=== PATIENT | male | born 1990 | race Caucasian/White ===

== ENCOUNTER 2023-10-24 02:05 | Emergency (ER) | payer BC, SELFPAY ==
[2023-10-24 02:07] VITALS: BP 126/96
[2023-10-24 02:45] VITALS: BMI 23.8
--- NOTE | 2023-10-24 04:04 | ED.GENMED ---
History of Present Illness
General
Chief Complaint: Throat Problem
Source: patient and family
Exam Limitations: none
Time Seen by Provider: 10/24/23 03:17
Nursing documentation reviewed up to this point in time: agreed with
History of Present Illness
History of Present Illness:
Pleasant 33-year-old male presents with throat discomfort. He states that he was eating this evening while he felt something stuck in his throat. He thought his esophagus was swelling shot. He states he has had this sensation multiple times in
the past but tonight it lasted longer. He does report that he vomited and the sensation resolved. Denies fever, chills, chest pain or shortness of breath. He states that he is due to see a editor producer. Denies any difficulty breathing..
Review of Systems
Review of Systems
Allergies reviewed?: Yes
All Other Systems: ROS reviewed and negative except as documented in HPI and ROS
Constitutional: Reports no symptoms
EENT: Reports no symptoms
Respiratory: Reports no symptoms
Cardiac: Reports no symptoms
ABD/GI: Reports no symptoms
: Reports no symptoms
Musculoskeletal: Reports no symptoms
Skin: Reports no symptoms
Neurological: Reports no symptoms
Endocrine: Reports no symptoms
Hematologic/Lymphatic: Reports no symptoms
Psychiatric: Reports no symptoms
Phy Exam
General Physical Exam
General Presentation: well appearing and no apparent distress
General Skin: warm and dry
General Habitus: normal
General Mental: alert
General Hydration: appears well hydrated
ENT Exam
ENT Exam: EOMI, pharynx normal, neck supple and normocephalic
Eye Exam
Eye Exam: PERRL, cornea clear and conjunctiva normal
Cardiovascular Exam
Cardiovascular Exam: regular rate/rhythm, no edema, no murmur and normal peripheral pulses
Pulmonary Exam
Pulmonary Exam: lungs clear, no respiratory distress, no rales, no crackles, no rhonchi, no stridor, no wheezing and no cough
Gastrointestinal Exam
Gastrointestinal Exam: normal bowel sounds, non tender, soft, no organomegaly, no pulsatile mass and non distended
Neurological Exam
Neurological Exam: alert, oriented x3, no motor deficits and speech normal
Musculoskeletal Exam
Musculoskeletal Exam: full ROM and no edema
Skin Exam
Skin Exam: normal color, warm/dry, no rash and no petechia
Psychiatric Exam
Psychiatric Exam: normal mood/affect
Course
Orders/Labs/Results
Orders:
Orders
10/24/23 03:41
CR Soft Tissue Neck Urgent
Comment:
Reason For Exam: odynophagia
Vital Signs
Initial and Last Documented VS:
Initial Vital Signs
Temp Pulse Resp BP Pulse Ox
97.8 F 78 22 126/96 98
10/24/23 02:07 10/24/23 02:07 10/24/23 02:07 10/24/23 02:07 10/24/23 02:07
Last Documented Vital Signs
Temp Pulse Resp BP Pulse Ox
97.8 F 78 22 126/96 98
10/24/23 02:07 10/24/23 02:07 10/24/23 02:07 10/24/23 02:07 10/24/23 02:07
*Radiology
Radiology exam reviewed: all reviewed NAD by ED Provider
*Pulse Oximetry
Patient hypoxic: no
*Critical Care Note
Total Time (30-74mins, 75-104mins- exclusive of procedures): Not Applicable
ED Attending Note
-
Portions of this chart may have been created with voice recognition software.� Occasional wrong word or��sound alike� substitutions may have occurred due to the inherent limitations of voice recognition software.
Discharge Plan
Departure
Patient Disposition: Home (Routine Discharge)
Date of Disposition: 10/24/23
Time of Disposition: 04:08
Patient with high blood pressure during this ER visit?: Yes
Condition: Good
Discharge Problem:
Dysphagia, Food impaction of esophagus
Instructions: BLOOD PRESSURE
Prescriptions:
No Action
ibuprofen 200 MG tablet
600 mg PO QIDPRN PRN (Reason: pain) Qty: 1 0RF
oxycodone-acetaminophen 5 MG/325 MG tablet
1 tab PO Q4HPRN PRN (Reason: pain not relieved by ibuprofen) Qty: 5 0RF
Referrals:
Naren Talley MD [Active] - Next open appointment
Activity Restrictions/Additional Instructions:
It was a pleasure meeting you and taking part in your care. We hope for your continued healing and wellness.
Please read discharge instructions in their entirety. However, they are for general education and may not describe your exact diagnosis at discharge. Information on your ER visit and medical conditions were discussed with you along with appropriate
follow up information...
If indicated, please take your medications as instructed and indicated on discharge paperwork.
Please schedule a follow up appointment as directed. Call to schedule an appointment
Please return to the emergency department with ANY change in, persisting, or worsening of symptoms. If any of your symptoms do not improve, or persist, or become more severe within 6-12 hours, please return to the emergency department for further
care.
Please return to the emergency department if you develop a headache, neck pain/stiffness, fever greater than 100.4F, chest pain, shortness of breath, persistent nausea, vomiting, slurred speech, difficulty walking, numbness/tingling, weakness, signs
of infection or any other symptoms that are worrisome to you.
If you have any questions or concerns please do not hesitate to call the Hospital at or E-mail me directly at [email or web address]
Interventions
Interventions:
*Risk Screen - Suicide Last Done: 10/24/23 02:07
*Neglect/Abuse Screening Last Done: 10/24/23 02:07
ED- Fall Risk Assessment Last Done: 10/24/23 02:46
ED-EENT Assessment Last Done: 10/24/23 02:46
ED- Pulmonary Assessment Last Done: 10/24/23 02:46
Discharge Date and Time
Print Language: [place]
== END 2023-10-24 04:34 | disposition home or self-care (01) ==
LOC: EMR 02:05
PROVIDERS: EMERGENCY PHYSICIAN Student in an Organized Health Care Education/Training Program
DX: R13.10 Dysphagia, unspecified (principal); T18.128A Food in esophagus causing other injury, initial encounter; W44.F3XA Food entering into or through a natural orifice, initial encounter
CPT/HCPCS: 99283; 70360

== ENCOUNTER → 2023-11-12 06:29 | Day surgery (SDC) | payer BC, SELFPAY | LOC: GI 06:29 | PROVIDERS: ATTENDING PHYSICIAN Internal Medicine Gastroenterology | DX: R13.14 Dysphagia, pharyngoesophageal phase (principal); R12 Heartburn; K44.9 Diaphragmatic hernia without obstruction or gangrene; K22.2 Esophageal obstruction; K22.89 Other specified disease of esophagus; K21.00 Gastro-esophageal reflux disease with esophagitis, without bleeding | CPT/HCPCS: 43249; 88305 ==

== ENCOUNTER 2024-01-20 20:53 | Emergency (ER) | payer BC, SELFPAY ==
[2024-01-20 20:55] VITALS: BP 120/77
--- NOTE | 2024-01-20 23:06 | ED.GENMED ---
History of Present Illness
General
Chief Complaint: Eye Problems
Time Seen by Provider: 01/20/24 22:28
History of Present Illness
History of Present Illness:
33-year-old male presenting with left eye pain. Patient said he mowed the lawn and then was taking a shower and felt a foreign body sensation in his left eye. Patient denies visual changes, numbness, weakness, tingling, or headache. Patient does
not wear contacts.
Phy Exam
Physical Exam
Physical Exam:
General: Alert, no acute distress
Head: NCAT
Eyes: Left conjunctiva with mild injection. Right conjunctiva clear. PERRLA, EOMI. No hyphema. No foreign body visualized. Everted left eyelid, no foreign body. Punctate fluorescein uptake at 9 o'clock position on the left eye
Neck: supple
Cardiac: regular rate and rhythm, no murmur
Lungs: clear to auscultation bilaterally. No wheezes, rales, or rhonchi. Speaking full unlabored sentences. No respiratory distress.
Skin: warm, dry
Neuro: Alert and oriented x3. no focal deficits
Course
Orders/Labs/Results
Orders:
Orders
01/20/24 23:24
Ciprofloxacin HCl [Ciloxan 0.3% Ophthalmic Solution] See Dose Instructions OPHTH NOW STA
01/20/24 23:32
Fluorescein Sodium [Ful-Iram] 2 mg .ROUTE .STK-MED ONE
Tetracaine HCl [Tetracaine 0.5% Ophthalmic Solution] 1 drop .ROUTE .STK-MED ONE
Vital Signs
Initial and Last Documented VS:
Initial Vital Signs
Temp Pulse Resp BP Pulse Ox
98.2 F 68 22 120/77 97
01/20/24 20:55 01/20/24 20:55 01/20/24 20:55 01/20/24 20:55 01/20/24 20:55
Last Documented Vital Signs
Temp Pulse Resp BP Pulse Ox
98.2 F 68 22 120/77 97
01/20/24 20:55 01/20/24 20:55 01/20/24 20:55 01/20/24 20:55 01/20/24 20:55
MDM/Problems Addressed
Differential Diagnosis Includes:
Foreign body, corneal abrasion, conjunctivitis
MDM/Problems Addressed:
33-year-old male presenting with foreign body sensation in left eye starting today. Punctate fluorescein uptake at 9 o'clock position on left eye. No foreign bodies visualized. Vision intact. Will start on Cipro drops, discharged with
ophthalmology follow-up
*Critical Care Note
Total Time (30-74mins, 75-104mins- exclusive of procedures): Not Applicable
ED Attending Note
-
Portions of this chart may have been created with voice recognition software.� Occasional wrong word or��sound alike� substitutions may have occurred due to the inherent limitations of voice recognition software.
Discharge Plan
Departure
Patient Disposition: Home (Routine Discharge)
Date of Disposition: 01/20/24
Time of Disposition: 23:10
Patient with high blood pressure during this ER visit?: No
Discharge Problem:
Corneal abrasion, left
Instructions: Corneal Abrasion (DC)
Prescriptions:
No Action
ibuprofen 200 MG tablet
600 mg PO QIDPRN PRN (Reason: pain) Qty: 1 0RF
oxycodone-acetaminophen 5 MG/325 MG tablet
1 tab PO Q4HPRN PRN (Reason: pain not relieved by ibuprofen) Qty: 5 0RF
Referrals:
Roxana Orourke MD [Active] -
NONE,* [Family Provider] -
Activity Restrictions/Additional Instructions:
Use to Cipro drops left eye every 6 hours for 5 days
Follow-up with ophthalmology in 1 to 2 days
Return to the emergency department for visual changes or new/worsening symptoms
Interventions
Interventions:
*Risk Screen - Suicide Last Done: 01/20/24 20:55
*General Assessment Last Done: 01/20/24 22:15
*Neglect/Abuse Screening Last Done: 01/20/24 20:55
ED- Fall Risk Assessment Last Done: 01/20/24 22:15
*ED COVID-19 Vaccine History Last Done: 01/20/24 22:15
*Nursing Disposition Last Done: 01/20/24 23:40
Discharge Date and Time
Discharge Date/Time: 01/20/24 23:40
Print Language: [place]
[2024-01-21] MEDS: CILOXAN 0.3% OPHTHALMIC SOLUTION 6 DROP OPHTH (00:02)
== END 2024-01-20 23:40 | disposition home or self-care (01) ==
LOC: EMR 20:53
PROVIDERS: EMERGENCY PHYSICIAN Emergency Medicine
DX: S05.02XA Injury of conjunctiva and corneal abrasion without foreign body, left eye, initial encounter (principal); X58.XXXA Exposure to other specified factors, initial encounter; Y93.H2 Activity, gardening and landscaping
CPT/HCPCS: 99283